=== PATIENT | female | born 1980 | race Two or more races ===

== ENCOUNTER 2017-04-14 01:32 | Emergency (ER) | payer MEDICAID, OTHER ==
[~2017-04-14] VITALS: Ht 167.6 cm; Wt 61.2 kg
--- NOTE | 2017-04-14 01:50 | NUR ---
TO BED 12 A 36 YO FEMALE PATIENT BB SELF; COUGH CONGESTION X 2 WEEKS. VSS. NAD NOTED. NONDIAPHORETIC. COMFORT MEASURES RENDERED.
--- NOTE | 2017-04-14 01:59 | NUR ---
DR MCMAHON AT BEDSIDE TO EVALUATE PATIENT.
[2017-04-14] MEDS ORDERED: ALBUTEROL FS 2.5 MG/3 ML VIAL.NEB NEB ONE (02:30)
[2017-04-14] MEDS ORDERED: IV NS 0.9% 1,000 ML BAG IV ONE (02:30)
[2017-04-14] MEDS ORDERED: IPRATROPIUM NEB FS 0.5 MG/2.5 ML AMPUL.NEB NEB ONE (02:30)
[2017-04-14] MEDS ORDERED: ALBUTEROL FS 2.5 MG/3 ML VIAL.NEB ONE (02:53)
[2017-04-14] MEDS ORDERED: IPRATROPIUM NEB FS 0.5 MG/2.5 ML AMPUL.NEB ONE (02:54)
--- NOTE | 2017-04-14 02:56 | NUR ---
ONGOING BREATHING TREATMENT BY RT.
[2017-04-14 03:45] VITALS: BP 123/64
--- NOTE | 2017-04-14 03:45 | NUR ---
IV removed. Catheter intact and site benign. Pressure and 4x4 applied to site. No bleeding noted.Patient discharged to home in stable condition. Written and verbal after care instructions given. Patient verbalizes understanding of instruction. Patient is ambulatory with steady gait. vss. nad on dc. No further complaints.
== END 2017-04-14 03:46 | disposition home or self-care (01) ==
LOC: ER 01:34
DX: B34.9 Viral infection, unspecified (principal)
CPT/HCPCS: 94640; 96360; 99284; A4606; J7030; Z7610